=== PATIENT | female | born 1965 | race Caucasian/White ===

== ENCOUNTER 2018-08-21 12:25 | Emergency (ER) | payer OTHER ==
--- NOTE | 2018-08-21 13:48 | EDPHY ---
H & P Stated Complaint: headache , dizzy Time Seen by Provider: 08/21/18 13:47 HPI/ROS: CHIEF COMPLAINT: Headache, dizziness HISTORY OF PRESENT ILLNESS: The patient presents the ED with a 4 day history of headache and dizziness. She was seen at urgent care and given a prescription for meclizine and Zofran. She reports she has continued to have ongoing severe headache located along the vertex or scalp. The patient denies any history of fall or trauma. She denies any acute symptoms of numbness or weakness. She does have photophobia. Patient takes no regular medications aside from melatonin as needed. The patient did have a mild upper respiratory illness approximately a week ago. REVIEW OF SYSTEMS: A comprehensive 10 point review of systems is otherwise negative aside from elements mentioned in the history of present illness. Source: Patient Exam Limitations: No limitations - Medical/Surgical History Hx Asthma: No Hx Chronic Respiratory Disease: No Hx Diabetes: No Hx Cardiac Disease: No Hx Renal Disease: No Hx Cirrhosis: No Hx Alcoholism: No Hx HIV/AIDS: No Hx Splenectomy or Spleen Trauma: No Other PMH: hysterectomy, gallbladder removed - Social History Smoking Status: Current every day smoker - Physical Exam Exam: General Appearance: Alert, no distress Eyes: Pupils equal and round no pallor or injection ENT, Mouth: Mucous membranes moist Respiratory: There are no retractions, lungs are clear to auscultation Cardiovascular: Regular rate and rhythm Gastrointestinal: Abdomen is soft and nontender, no masses, bowel sounds normal Neurological: A&O, normal motor function, normal sensory exam, normal cranial nerves Skin: Warm and dry, no rashes Musculoskeletal: Neck is supple nontender Extremities: symmetrical, full range of motion Constitutional: Initial Vital Signs Temperature (C) 37.2 C 08/21/18 12:28 Heart Rate 87 08/21/18 12:28 Respiratory Rate 16 08/21/18 12:28 Blood Pressure 156/112 H 08/21/18 12:28 O2 Sat (%) 97 08/21/18 12:28 O2 Delivery Mode Room Air Allergies/Adverse Reactions: meclizine Allergy (Mild, Verified 08/21/18 12:28) Rash Home Medications: Medication Instructions Recorded Melatonin 08/21/18 Medical Decision Making - Diagnostics Imaging Results: Imaging Impressions Brain MRI 08/21/18 13:54 Impression: 1. Mild sinusitis. 2. Otherwise normal MRI brain, without contrast. 3. No acute infarct, acute hemorrhage, hydrocephalus, or mass effect. Findings and recommendations discussed with Emergency Department physician, Bucky Seo M.D., at 1600 hours, on August 21, 2018. Final report concurs with initial preliminary interpretation. Head MRA 08/21/18 13:55 Impression: No definite evidence of superior sagittal sinus thrombosis. Findings and recommendations discussed with Emergency Department physician, Bucky Seo M.D., at 1545 hours, on August 21, 2018. Final report concurs with initial preliminary interpretation. ED Course/Re-evaluation: Patient presents the ED for evaluation of a frontal headache, blurry vision and disequilibrium. Patient was started on meclizine and anti emetics at urgent care several days ago. She has had no significant improvement of her symptoms. I appreciate no nystagmus on exam. The patient's neurologic examination is normal. She does not have meningeal symptoms. The patient had an IV established and she received a L of normal saline. Patient has no prior history of a severe frontal vertical headache. MRI of the brain was ordered and is unremarkable. MR angiography demonstrates no evidence of a sagittal vein thrombosis. The patient received IV Toradol and Zofran. She did receive some Ativan prior to receiving her MRI secondary to claustrophobia. Re-evaluated the patient she continues to complain of an ongoing since moderate retro-orbital headache and headache concentrated along her vertex. We discussed the risks and benefits of lumbar puncture to exclude subarachnoid hemorrhage verses subacute meningitis. Patient verbally consented to undergo LP. I was unable to obtain a lumbar puncture secondary to her bony anatomy. Interventional radiology was consulted and they performed a lumbar puncture which demonstrates no evidence of subarachnoid hemorrhage or evidence of meningitis. This point time the patient will be discharged home with instructions to take ibuprofen and Comstock. The patient should return to the ED for markedly worsening symptoms or other concerns. I have asked her to follow up with our on-call neurologist for any ongoing mild headache. Differential Diagnosis: Differential diagnosis considered includes migraine headache, benign positional vertigo, [employer] tumor, intracranial hemorrhage, sagittal vein thrombosis - Data Points Laboratory Results: Laboratory Results 08/21/18 14:05 08/21/18 14:05 08/21/18 08/21/18 08/21/18 19:05 14:05 14:05 WBC RBC Hgb Hct MCV MCH MCHC RDW Plt Count MPV Neut % (Auto) Lymph % (Auto) [place] % (Auto) Eos % (Auto) Baso % (Auto) Nucleat RBC Rel Count Absolute Neuts (auto) Absolute Lymphs (auto) Absolute Monos (auto) Absolute Eos (auto) Absolute Basos (auto) Absolute Nucleated RBC Immature Gran % Immature Gran # PT 12.1 SEC SEC (12.0-15.0) INR 0.87 (0.83-1.16) APTT 27.7 SEC SEC (23.0-38.0) Sodium 140 mEq/L mEq/L (135-145) Potassium 4.4 mEq/L mEq/L (3.5-5.2) Chloride 108 mEq/L mEq/L (97-110) Carbon Dioxide 25 mEq/l mEq/l (22-31) Anion Gap 7 mEq/L mEq/L (6-14) BUN 12 mg/dL mg/dL (7-23) Creatinine 0.7 mg/dL mg/dL (0.6-1.0) Estimated GFR > 60 Glucose 87 mg/dL mg/dL (70-100) Calcium 9.4 mg/dL mg/dL (8.5-10.4) CSF Tube Number 4 CSF Appearance CLEAR (CLEAR) CSF Color COLORLESS (COLORLESS) CSF Supernatant TNP CSF WBC 2 /mm3 /mm3 (0-5) CSF RBC 33 /mm3 H /mm3 (0-0) CSF Glucose Pending CSF Total Protein Pending 08/21/18 14:05 WBC 9.95 10^3/uL H 10^3/uL (3.80-9.50) RBC 5.04 10^6/uL 10^6/uL (4.18-5.33) Hgb 15.5 g/dL g/dL (12.6-16.3) Hct 47.6 % H % (38.0-47.0) MCV 94.4 fL fL (81.5-99.8) MCH 30.8 pg pg (27.9-34.1) MCHC 32.6 g/dL g/dL (32.4-36.7) RDW 12.9 % % (11.5-15.2) Plt Count 243 10^3/uL 10^3/uL (150-400) MPV 10.0 fL fL (8.7-11.7) Neut % (Auto) 63.4 % % (39.3-74.2) Lymph % (Auto) 26.4 % % (15.0-45.0) [place] % (Auto) 5.1 % % (4.5-13.0) Eos % (Auto) 3.9 % % (0.6-7.6) Baso % (Auto) 0.9 % % (0.3-1.7) Nucleat RBC Rel Count 0.0 % % (0.0-0.2) Absolute Neuts (auto) 6.30 10^3/uL 10^3/uL (1.70-6.50) Absolute Lymphs (auto) 2.63 10^3/uL 10^3/uL (1.00-3.00) Absolute Monos (auto) 0.51 10^3/uL 10^3/uL (0.30-0.80) Absolute Eos (auto) 0.39 10^3/uL 10^3/uL (0.03-0.40) Absolute Basos (auto) 0.09 10^3/uL 10^3/uL (0.02-0.10) Absolute Nucleated RBC 0.00 10^3/uL 10^3/uL (0-0.01) Immature Gran % 0.3 % % (0.0-1.1) Immature Gran # 0.03 10^3/uL 10^3/uL (0.00-0.10) PT INR APTT Sodium Potassium Chloride Carbon Dioxide Anion Gap BUN Creatinine Estimated GFR Glucose Calcium CSF Tube Number CSF Appearance CSF Color CSF Supernatant CSF WBC CSF RBC CSF Glucose CSF Total Protein Medications Given: Discontinued Medications Dexamethasone (Decadron Injection) 10 mg IVP EDNOW ONE Stop: 08/21/18 16:50 Last Admin: 08/21/18 17:18 Dose: 10 mg Fentanyl (Sublimaze) 50 mcg IVP EDNOW ONE Stop: 08/21/18 17:15 Last Admin: 08/21/18 17:22 Dose: 50 mcg Sodium Chloride (Ns) 1,000 mls @ 0 mls/hr IV EDNOW ONE; Wide Open PRN Reason: Protocol Stop: 08/21/18 13:55 Last Admin: 08/21/18 14:04 Dose: 1,000 mls Ketorolac Tromethamine (Toradol) 30 mg IVP EDNOW ONE Stop: 08/21/18 13:55 Last Admin: 08/21/18 14:05 Dose: 30 mg Lorazepam (Ativan Injection) 1 mg IVP EDNOW ONE Stop: 08/21/18 14:38 Last Admin: 08/21/18 14:38 Dose: 1 mg Metoclopramide HCl (Reglan Injection) 10 mg IVP EDNOW ONE Stop: 08/21/18 16:50 Last Admin: 08/21/18 17:15 Dose: 10 mg Ondansetron HCl (Zofran) 4 mg IVP EDNOW ONE Stop: 08/21/18 13:55 Last Admin: 08/21/18 14:05 Dose: 4 mg Departure - Departure Disposition: Home, Routine, Self-Care Clinical Impression: Headache Condition: Good Instructions: Acute Headache (ED) Additional Instructions: 1. Your head CT scan, lumbar puncture and blood work are normal. 2. Take Ibuprofen or Motrin 600 mg by mouth three times a day. 3. Comstock as needed for severe pain 4. Zofran as needed for nausea. 5. Follow up with a neurologist you have been referred to for any ongoing mild headache. 6. Return to the ED for markedly worsening headache, fever, numbness, weakness or other concerns. Referrals: Mario Alberto Antunez DO [Medical Doctor] - As per Instructions
[2018-08-21] MEDS ORDERED: ONDANSETRON 4 MG/2 ML VIAL IVP ONE (13:54)
[2018-08-21] MEDS ORDERED: KETOROLAC 30 MG/1 ML SDV IVP ONE (13:54)
[2018-08-21] MEDS ORDERED: NS 1,000 ML IV ONE (13:54)
[2018-08-21 14:22] LABS: PLATELET COUNT 243 10^3/uL (150-400)
[2018-08-21] MEDS ORDERED: LORazepam 2 MG/ML INJ ONE (14:36)
[2018-08-21] MEDS ORDERED: LORazepam 2 MG/ML INJ IVP ONE (14:37)
[2018-08-21] MEDS ORDERED: METOCLOPRAMIDE 10 MG/2 ML VIAL IVP ONE (16:49)
[2018-08-21] MEDS ORDERED: DEXAMETHASONE 10 MG/ML VIAL IVP ONE (16:49)
[2018-08-21] MEDS ORDERED: fentaNYL 100 MCG/2 ML INJ ONE (17:10)
[2018-08-21] MEDS ORDERED: fentaNYL 100 MCG/2 ML INJ IVP ONE (17:14)
[2018-08-21] MEDS ORDERED: LIDOCAINE 1% 300 MG/30 ML SDV ONE ×2 (18:00→18:19)
[2018-08-21 18:08] LABS: INR 0.87 (0.83-1.16); PROTIME(PATIENT) 12.1 SEC (12.0-15.0)
[2018-08-21] MEDS ORDERED: HYDROmorphONE/DILAUDID 2 MG/ML INJ IVP ONE (20:02)
[2018-08-21] MEDS ORDERED: HYDROmorphONE/DILAUDID 1 MG/ML INJ ONE (20:04)
[2018-08-21 20:13] VITALS: BP 148/94
== END 2018-08-21 20:13 | disposition home or self-care (01) ==
DX: R51 Headache (principal); R42 Dizziness and giddiness
CPT/HCPCS: 96374; J1100; J1170; J1885; J2060; J2405; J2765; J3010